=== PATIENT | female | born 1970 | race Caucasian/White ===

== ENCOUNTER 2019-08-10 15:48 | Emergency (ER) | payer SELFPAY ==
--- NOTE | 2019-08-10 16:37 | RAD ---
XR Pelvis AP STANDARD: 08/10/2019 4:21 PM CLINICAL INDICATION: Injury COMPARISON: None. FINDINGS: Fracture:No fracture. Arthropathy:Mild arthropathy. Incidental findings:None of significance. IMPRESSION: 1. No acute osseous abnormality.
--- NOTE | 2019-08-10 16:42 | RAD ---
XR Sacrum and Coccyx STANDARD: 08/10/2019 4:22 PM CLINICAL INDICATION: Injury COMPARISON: None. FINDINGS: No fracture or dislocation of the sacrum/coccyx. Scattered osseous degenerative changes present. Line ar oriented density of the pelvis may relate to surgical suture. IMPRESSION: 1. No acute osseous abnormality.
== END 2019-08-10 17:10 | disposition home or self-care (01) ==
LOC: NAV ERS 15:48
DX: S30.0XXA Contusion of lower back and pelvis, initial encounter (principal); I10 Essential (primary) hypertension; M06.9 Rheumatoid arthritis, unspecified; F41.9 Anxiety disorder, unspecified; F31.9 Bipolar disorder, unspecified; F17.200 Nicotine dependence, unspecified, uncomplicated; W01.0XXA Fall on same level from slipping, tripping and stumbling without subsequent striking against object, initial encounter
CPT/HCPCS: 72170; 72220; 99283